=== PATIENT | male | born 1985 | race Two or more races ===

== ENCOUNTER 2017-12-29 09:26 | Emergency (ER) | payer OTHER ==
[2017-12-29] MEDS: KETOROLAC 30 MG INJ IM (10:09)
[2017-12-29] MEDS: ACETAMINOPHEN 500 MG TAB PO (10:16)
[2017-12-29] MEDS: SOD CHLORIDE 0.9% 1,000 ML IV (11:51)
[2017-12-29 12:09] LABS: ADD MAN DIFF? NO
[2017-12-29 12:12] LABS: BASOPHIL # 0.1 10^3/ul (0.0-0.1); BASOPHILS % 0.6 % (0.0-2.0); EOSINOPHILS # 0.4 10^3/ul (0.0-0.5); EOSINOPHILS % 2.6 % (0.0-7.0); HEMATOCRIT 42.5 % (42.0-52.0); HEMOGLOBIN 14.5 g/dl (14.0-18.0); LYMPHOCYTES # 1.5 10^3/ul (0.8-2.9); LYMPHOCYTES % 10.9 % (15.0-51.0); MEAN CORPUSCULAR HEMOGLOBIN 29.1 pg (29.0-33.0); MEAN CORPUSCULAR HGB CONC 34.1 g/dl (32.0-37.0); MEAN CORPUSCULAR VOLUME 85.2 fl (82.0-101.0); MEAN PLATELET VOLUME 9.9 fl (7.4-10.4); MONOCYTE # 1.3 10^3/ul (0.3-0.9); NEUTROPHILS % 75.6 % (39.0-77.0); PLATELET COUNT 230 10^3/UL (140-415); RED BLOOD COUNT 4.99 10^6/ul (4.70-6.10); RED CELL DISTRIBUTION WIDTH 12.5 % (11.5-14.5)
[2017-12-29 12:12] LABS: WHITE BLOOD COUNT 13.3 10^3/ul (4.8-10.8)
[2017-12-29 12:30] LABS: ALANINE AMINOTRANSFERASE 47 IU/L (13-69); ALBUMIN 4.2 g/dl (3.3-4.9); ALBUMIN/GLOBULIN RATIO 1.31; ALKALINE PHOSPHATASE 86 IU/L (42-121); ASPARTATE AMINO TRANSFERASE 32 IU/L (15-46); BILIRUBIN,INDIRECT 0.3 mg/dl (0-1.1); BILIRUBIN,TOTAL 0.3 mg/dl (0.2-1.3); BLOOD UREA NITROGEN 14 mg/dl (7-20); CALCIUM 9.6 mg/dl (8.4-10.2); CARBON DIOXIDE 30 mmol/L (21-31); CHLORIDE 103 mmol/L (97-110); CREATININE 0.96 mg/dl (0.61-1.24); GLUCOSE 104 mg/dl (70-220); LIPASE 117 U/L (23-300); POTASSIUM 4.3 mmol/L (3.5-5.1); TOTAL PROTEIN 7.4 g/dl (6.1-8.1)
[2017-12-29 12:35] LABS: ANION GAP 14 (8-16); SODIUM 143 mmol/L (135-144)
== END 2017-12-29 13:41 | disposition home or self-care (01) ==
LOC: FTE 09:26
DX: J02.9 Acute pharyngitis, unspecified (principal)
CPT/HCPCS: 71045; 80053; 83690; 85025; 96372; 99284-25

== ENCOUNTER 2018-01-01 14:36 | Inpatient (IN) | payer OTHER ==
[2018-01-01] MEDS: LIDOCAINE/MYLANTA 40 ML BTL PO (16:44)
[2018-01-01] MEDS: KETOROLAC 30 MG INJ IV (16:45)
[2018-01-01] MEDS: CEFEPIME 2GM/50 ML (PMX) 50 ML IVPB (16:45)
[2018-01-01] MEDS: SODIUM CHLORIDE 0.9% 1L BAG IV* (16:46)
[2018-01-01 16:48] LABS: ADD MAN DIFF? NO
[2018-01-01 16:49] LABS: ABNORMAL IP MESSAGE 1; BASOPHIL # 0.1 10^3/ul (0.0-0.1); BASOPHILS % 0.6 % (0.0-2.0); EOSINOPHILS # 0.3 10^3/ul (0.0-0.5); EOSINOPHILS % 2.2 % (0.0-7.0); HEMOGLOBIN 14.4 g/dl (14.0-18.0); LYMPHOCYTES # 2.1 10^3/ul (0.8-2.9); LYMPHOCYTES % 15.6 % (15.0-51.0); MEAN CORPUSCULAR HGB CONC 33.5 g/dl (32.0-37.0); MEAN CORPUSCULAR VOLUME 86.7 fl (82.0-101.0); MEAN PLATELET VOLUME 9.6 fl (7.4-10.4); MONOCYTE # 1.6 10^3/ul (0.3-0.9); NEUTROPHIL # 9.2 10^3/ul (1.6-7.5); PLATELET COUNT 279 10^3/UL (140-415); POSITIVE DIFF @See below; RED BLOOD COUNT 4.96 10^6/ul (4.70-6.10); RED CELL DISTRIBUTION WIDTH 12.1 % (11.5-14.5)
[2018-01-01 16:49] LABS: WHITE BLOOD COUNT 13.4 10^3/ul (4.8-10.8)
[2018-01-01] MEDS: ACETAMINOPHEN 325 MG TAB PO (17:01)
[2018-01-01 17:09] LABS: ALANINE AMINOTRANSFERASE 40 IU/L (13-69); ALBUMIN 4.4 g/dl (3.3-4.9); ALBUMIN/GLOBULIN RATIO 1.15; ALKALINE PHOSPHATASE 87 IU/L (42-121); ANION GAP 18 (8-16); ASPARTATE AMINO TRANSFERASE 28 IU/L (15-46); BILIRUBIN,INDIRECT 0.4 mg/dl (0-1.1); BILIRUBIN,TOTAL 0.4 mg/dl (0.2-1.3); BLOOD UREA NITROGEN 19 mg/dl (7-20); CALCIUM 9.6 mg/dl (8.4-10.2); CARBON DIOXIDE 28 mmol/L (21-31); CHLORIDE 99 mmol/L (97-110); CREATININE 0.98 mg/dl (0.61-1.24); GLUCOSE 133 mg/dl (70-220); POTASSIUM 4.4 mmol/L (3.5-5.1); SODIUM 141 mmol/L (135-144); TOTAL PROTEIN 8.2 g/dl (6.1-8.1)
[2018-01-01 17:09] LABS: LACTIC ACID 1.1 mmol/L (0.5-2.0)
[2018-01-01 17:22] LABS: TROPONIN-I < 0.012 ng/ml (0.00-0.12)
[2018-01-01 17:30] LABS: PROTIME 13.3 Sec (11.9-14.9)
[2018-01-01 17:31] LABS: PARTIAL THROMBOPLASTIN TIME 32.3 Sec (25.0-35.0)
[2018-01-01] MEDS: AZITHROMYCIN 500MG/NS (PMX) 250 ML IVPB (18:04)
[2018-01-01] MEDS: DEXAMETHASONE 4 MG TAB PO (19:51)
[2018-01-01] MEDS ORDERED: PIPER-TAZO 3.375 GM IV (PMX) 100 ML IVPB (20:00)
[2018-01-01] MEDS ORDERED: VANCOMYCIN IV PER PHARMACY XX (20:00)
[2018-01-01] MEDS: PIPER-TAZO 3.375 GM IV (PMX) 100 ML IVPB (20:11)
[2018-01-01] MEDS: SOD CHLORIDE 0.9% 100 ML (20:30)
[2018-01-01] MEDS: IOHEXOL 300MG/ML 150 ML BTL (20:30)
[2018-01-01] MEDS: VANCOMYCIN 2 GM in SOD CHLORIDE 0.9% 500 ML IVPB (21:31)
[2018-01-01] MEDS: DEXAMETHASONE 4 MG/ML 1 ML INJ IV (21:31)
[2018-01-01] MEDS: GUAIFENESIN/DM 5ML CUP PO (22:16)
[2018-01-01 22:58] LABS: LACTIC ACID 0.8 mmol/L (0.5-2.0)
[2018-01-02] MEDS: morphine 4 MG/ML VIAL IV
[2018-01-02] MEDS ORDERED: PIPER-TAZO 3.375 GM IV (PMX) 100 ML IVPB
[2018-01-02] MEDS ORDERED: ACETAMINOPHEN (10 MG/ML) IV SYG IV* (00:30)
[2018-01-02] MEDS ORDERED: ACETAMINOPHEN 1000MG/100ML IV 100 ML IVPB (00:30)
[2018-01-02] MEDS: PIPER-TAZO 3.375 GM IV (PMX) 100 ML IVPB ×5 (01:59→17:54)
[2018-01-02] MEDS: GUAIFENESIN/DM 5ML CUP PO ×5 (02:02→19:53)
[2018-01-02] MEDS: DEXAMETHASONE 4 MG/ML 1 ML INJ IV ×3 (05:56→21:30)
[2018-01-02 06:30] LABS: ADD MAN DIFF? NO
[2018-01-02] MEDS: VANCOMYCIN 1.25 GM in SOD CHLORIDE 0.9% 250 ML IVPB ×3 (06:36→21:31)
[2018-01-02 06:39] LABS: BASOPHILS % 0.3 % (0.0-2.0); EOSINOPHILS % 0.1 % (0.0-7.0); HEMATOCRIT 43.2 % (42.0-52.0); HEMOGLOBIN 14.4 g/dl (14.0-18.0); LYMPHOCYTES # 1.5 10^3/ul (0.8-2.9); MEAN CORPUSCULAR HEMOGLOBIN 28.8 pg (29.0-33.0); MEAN CORPUSCULAR HGB CONC 33.3 g/dl (32.0-37.0); MEAN CORPUSCULAR VOLUME 86.4 fl (82.0-101.0); MEAN PLATELET VOLUME 9.9 fl (7.4-10.4); MONOCYTE # 0.3 10^3/ul (0.3-0.9); MONOCYTES % 2.3 % (0.0-11.0); NEUTROPHIL # 9.7 10^3/ul (1.6-7.5); NEUTROPHILS % 83.6 % (39.0-77.0); PLATELET COUNT 299 10^3/UL (140-415); RED CELL DISTRIBUTION WIDTH 12.1 % (11.5-14.5)
[2018-01-02 06:39] LABS: WHITE BLOOD COUNT 11.6 10^3/ul (4.8-10.8)
[2018-01-02 06:58] LABS: ANION GAP 17 (8-16); BLOOD UREA NITROGEN 14 mg/dl (7-20); CALCIUM 9.6 mg/dl (8.4-10.2); CARBON DIOXIDE 28 mmol/L (21-31); CHLORIDE 102 mmol/L (97-110); CREATININE 0.82 mg/dl (0.61-1.24); GLUCOSE 189 mg/dl (70-220); POTASSIUM 3.9 mmol/L (3.5-5.1); SODIUM 143 mmol/L (135-144)
[2018-01-02] MEDS: ACYCLOVIR 400 MG TAB PO ×2 (12:50→21:30)
[2018-01-02] MEDS: FAMOTIDINE 20 MG TAB PO (21:30)
[2018-01-03] MEDS: PIPER-TAZO 3.375 GM IV (PMX) 100 ML IVPB ×4 (00:31→18:17)
[2018-01-03] MEDS: DEXAMETHASONE 4 MG/ML 1 ML INJ IV ×3 (05:35→21:03)
[2018-01-03] MEDS: GUAIFENESIN/DM 5ML CUP PO ×2 (05:40→13:54)
[2018-01-03 06:15] LABS: ADD MAN DIFF? NO
[2018-01-03 06:49] LABS: ANION GAP 12 (8-16); BLOOD UREA NITROGEN 16 mg/dl (7-20); CALCIUM 9.2 mg/dl (8.4-10.2); CARBON DIOXIDE 29 mmol/L (21-31); CHLORIDE 107 mmol/L (97-110); CREATININE 0.77 mg/dl (0.61-1.24); GLUCOSE 200 mg/dl (70-220); POTASSIUM 4.4 mmol/L (3.5-5.1); SODIUM 144 mmol/L (135-144)
[2018-01-03 06:54] LABS: VANCOMYCIN,TROUGH 8.8 ug/ml (10.0-20.0)
[2018-01-03] MEDS: VANCOMYCIN 1.25 GM in SOD CHLORIDE 0.9% 250 ML IVPB (06:59)
[2018-01-03 07:28] LABS: BASOPHILS % 0.1 % (0.0-2.0); HEMATOCRIT 39.4 % (42.0-52.0); HEMOGLOBIN 13.2 g/dl (14.0-18.0); LYMPHOCYTES # 1.5 10^3/ul (0.8-2.9); LYMPHOCYTES % 8.6 % (15.0-51.0); MEAN CORPUSCULAR HEMOGLOBIN 28.9 pg (29.0-33.0); MEAN CORPUSCULAR HGB CONC 33.5 g/dl (32.0-37.0); MEAN CORPUSCULAR VOLUME 86.2 fl (82.0-101.0); MEAN PLATELET VOLUME 10.2 fl (7.4-10.4); MONOCYTE # 1.1 10^3/ul (0.3-0.9); MONOCYTES % 6.4 % (0.0-11.0); NEUTROPHIL # 14.6 10^3/ul (1.6-7.5); NEUTROPHILS % 84.2 % (39.0-77.0); PLATELET COUNT 306 10^3/UL (140-415); RED BLOOD COUNT 4.57 10^6/ul (4.70-6.10); RED CELL DISTRIBUTION WIDTH 12.2 % (11.5-14.5)
[2018-01-03 07:28] LABS: WHITE BLOOD COUNT 17.4 10^3/ul (4.8-10.8)
[2018-01-03] MEDS: ACYCLOVIR 400 MG TAB PO ×2 (08:59→13:47)
[2018-01-03 11:01] LABS: HSV 2 IGG ANTIBODY <0.90 index
[2018-01-03] MEDS: VANCOMYCIN 1.5 GM in SOD CHLORIDE 0.9% 250 ML IVPB ×2 (13:48→21:12)
[2018-01-03] MEDS: VALACYCLOVIR 500 MG TAB PO ×2 (15:42→21:03)
[2018-01-03 16:06] LABS: HEPATITIS B SURFACE ANTIGEN NEGATIVE (NEGATIVE)
[2018-01-03 16:23] LABS: HEPATITIS C VIRAL ANTIBODY NEGATIVE (NEGATIVE)
[2018-01-03] MEDS: FAMOTIDINE 20 MG TAB PO (21:03)
[2018-01-04] MEDS: PIPER-TAZO 3.375 GM IV (PMX) 100 ML IVPB ×3 (00:31→11:05)
[2018-01-04] MEDS: DEXAMETHASONE 4 MG/ML 1 ML INJ IV ×2 (05:50→13:12)
[2018-01-04] MEDS: VANCOMYCIN 1.5 GM in SOD CHLORIDE 0.9% 250 ML IVPB (06:45)
[2018-01-04] MEDS: VALACYCLOVIR 500 MG TAB PO (08:59)
[2018-01-04] MEDS: GUAIFENESIN/DM 5ML CUP PO (10:09)
[2018-01-04] MEDS: AZITHROMYCIN 250 MG TAB PO (13:12)
== END 2018-01-04 14:10 | disposition home or self-care (01) | DRG 159 ==
LOC: MS2 19:05 → FTE 14:36
DX: K14.0 Glossitis (principal); J34.2 Deviated nasal septum; J02.9 Acute pharyngitis, unspecified; B00.1 Herpesviral vesicular dermatitis
CPT/HCPCS: 36415; 70491; 71045; 80048; 80053; 80202; 83605; 84484; 85025; 85610; 85730; 86692; 86803; 87040; 87340; 93005; 96365; 96366; 96368; 96375; 99291-25

== ENCOUNTER 2018-01-08 15:31 | Outpatient (CLI) | payer OTHER | END 2018-01-09 14:13 | disposition home or self-care (01) | LOC: DCC 15:31 | DX: A41.9 Sepsis, unspecified organism (principal); B00.9 Herpesviral infection, unspecified; D72.829 Elevated white blood cell count, unspecified | CPT/HCPCS: G0463 ==